=== PATIENT | female | born 1965 | race Asian ===

== ENCOUNTER 2017-04-22 14:38 | Outpatient (CLI) | payer OTHER | END 2017-04-22 18:27 | disposition home or self-care (01) | LOC: SMA 14:38 | PROVIDERS: ATTEND Internal Medicine | DX: Z12.31 Encounter for screening mammogram for malignant neoplasm of breast (principal) | CPT/HCPCS: G0202 ==

== ENCOUNTER 2018-06-09 15:11 | Outpatient (CLI) | payer OTHER | END 2018-06-09 20:53 | disposition home or self-care (01) | LOC: SMA 15:11 | PROVIDERS: ATTEND Internal Medicine Geriatric Medicine | DX: Z12.31 Encounter for screening mammogram for malignant neoplasm of breast (principal) | CPT/HCPCS: 77067 ==